=== PATIENT | female | born 1970 | race Caucasian/White ===

== ENCOUNTER 2019-04-27 19:01 | Inpatient (IN) ==
[2019-04-27] MEDS ORDERED: DiphenhydrAMINE HCL 50 MG/ML VIAL IV STA (19:34)
[2019-04-27] MEDS ORDERED: SODIUM CHLORIDE 0.9% 1000ML 2,000 ML IV ONE (19:34)
[2019-04-27] MEDS ORDERED: KETOROLAC TROMETHAMINE 15 MG/ML VIAL IV ONE (19:34)
[2019-04-27] MEDS ORDERED: ASPIRIN CHEW 324 MG PO STA (20:00)
[2019-04-27] MEDS ORDERED: ASPIRIN CHEW 324 MG ONE (20:01)
[2019-04-27 20:08] LABS: Basophils # (auto) 0.05 K/uL (0-0.2); Basophils % (auto) 0.7 %; Eosinophils # (auto) 0.23 K/uL (0-0.5); Eosinophils % (auto) 3.1 %; Hematocrit (blood only) 35.9 % (37-47); Hemoglobin 11.9 g/dL (12.0-16.0); Immature Granulocytes # (auto) 0.02 K/uL (0.00-0.02); Immature Granulocytes % (auto) 0.3 %; Lymphocytes # (auto) 1.62 K/uL (1.2-3.4); Mean Corpuscular Hgb Conc 33.1 g/dL (32-36); Mean Corpuscular Volume 87.8 fL (80-100); Mean Platelet Volume 9.5 fL (7.4-10.4); Monocytes # (auto) 0.66 K/uL (0.11-0.59); Neutrophils # (auto) 4.77 K/uL (1.4-6.5); Neutrophils % (auto) 64.9 %; Platelet Count 171 K/uL (130-400); RDW Coefficient of Variation 13.6 % (11.5-14.5); RDW Standard Deviation 43.6 fL (36.4-46.3); Red Blood Count 4.09 M/uL (4.2-5.4); White Blood Count 7.35 K/uL (4.8-10.8)
--- NOTE | 2019-04-27 20:13 | XRay Report ---
XR chest 1V portable CLINICAL HISTORY: 48 years-old Female presenting with Sepsis. TECHNIQUE: Portable upright AP view of the chest was obtained. COMPARISON: None. FINDINGS: Cardiac silhouette top normal in size. No focal opacity. No large effusion or pneumothorax. Osseous s tructures normal. Upper abdomen normal. IMPRESSION: 1. No acute cardiopulmonary disease. Electronically signed by: Juliano French M.D. 04/27/2019 8:11 PM
[2019-04-27 20:19] LABS: Partial Thromboplastin Time 26.4 Seconds (21.0-31.0); Prothrombin Time 10.4 Seconds (9.0-12.0)
[2019-04-27] MEDS ORDERED: Heparin IV Low Dose WITH Bolus IV STA (20:24)
[2019-04-27] MEDS ORDERED: cefTRIAXone SODIUM 2,000 MG in DEXTROSE 5% 50 ML IV STA (20:24)
[2019-04-27] MEDS ORDERED: Heparin IV Low Dose WITH Bolus STA (20:24)
[2019-04-27 20:27] LABS: Albumin Level 3.4 gm/dl (3.4-5.0); BUN Creatinine Ratio 15.9 (10-20); Calcium 8.4 mg/dl (8.5-10.1); Creatinine Clr Calc Pharmacy 91.3 ml/min; Est GFR (African American) 91.3; Est GFR (Non-African American) 78.8; Potassium 3.7 mmol/L (3.5-5.1)
[2019-04-27 20:30] LABS: Bilirubin,Total 0.4 mg/dl (0.2-1); Globulin 3.5 gm/dl (2.5-4.0); Total Protein 6.9 gm/dl (6.4-8.2)
--- NOTE | 2019-04-27 20:35 | CT Scan Report ---
CT head/brain wo con CLINICAL HISTORY: 48 years-old Female presenting with WYATT, fevers, bodyaches. TECHNIQUE: Multidetector CT imaging of the head was performed without the use of intravenous contrast . IV contrast: None. One or more dose lowering techniques were used consistent with the principles of ALARA (as low as reasonably achievable), including automatic exposure control, mA or kV adjustment t o individual patient size, and/or use of iterative reconstruction. COMPARISON: None. CT DOSE (mGy.cm): The estimated cumulative dose is 537.48 mGy.cm. FINDINGS: [employer] [place] [employer] topogram: Unremarkable. Ventricles and sulci normal in size. No hemorrhage. Brain parenchyma normal in appearance with preser gladys costa-white differentiation. No acute territorial infarct. No mass effect or midline shift. No ext ra-axial fluid collection. Paranasal sinuses and mastoid air cells clear. Calvarium intact. IMPRESSION: 1. No acute intracranial abnormality. Electronically signed by: Juliano French M.D. 04/27/2019 8:33 PM
[2019-04-27] MEDS ORDERED: HEPARIN 25000 UNIT/500 ML D5W IV ONE (20:50)
[2019-04-27] MEDS ORDERED: HEPARIN SOD (PORCINE) 1000 UNIT/ML 10 ML VIAL ONE (20:50)
[2019-04-27] MEDS ORDERED: DEXAMETHASONE **PF** INJ 10 MG/ML VIAL IV ONE (20:57)
[2019-04-27 21:01] LABS: Lyme Ab IgG w/WB Rflx Negative (Negative)
[2019-04-27 21:03] LABS: Lyme Ab IgM w/WB Rflx Positive (Negative)
[2019-04-27 21:26] LABS: Appearance Urine Clear (Clear); Bacteria Urine Automated Negative (Negative); Bilirubin Urine Negative (Negative); Blood Urine Trace (Negative); Cast Urine Automated 0 /lpf (0-5); Color Urine Yellow; Glucose Urine UA Negative (Negative); Ketones Urine Negative (Negative); Leukocyte Esterase Urine Negative (Negative); Nitrite Urine Negative (Negative); Protein Urine Negative (Negative); RBC Urine Automated 0-4 /hpf (0-4); Specific Gravity Urine 1.014 (1.000-1.030); Urobilinogen Urine Negative (Negative); WBC Urine Automated 0 /hpf (0-5); pH Urine 7.5 (4.5-7.5)
[2019-04-27] MEDS ORDERED: Heparin Adult LOW DOSE Wt-Based Dextrose 5% 25,000 units/500 mL IV SCH (21:30)
[2019-04-27] MEDS ORDERED: CALCIUM GLUCONATE 10% 1,000 MG in SODIUM CHLORIDE 0.9% 50 ML IV STA (21:33)
--- NOTE | 2019-04-27 21:55 | History & Physical Report ---
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 In ED patient remained hemodynamically stable. Her WBC was 7.35, H&H 11.9/35.9, platelet 171, CMP unremarkable, Lyme IgM positive, urinalysis consistent with trace micro scopic hematuria. CT scan of head was unremarkable along with chest x-ray. EKG was concerning for anterior lateral and inferior ST wave depression and T wave inversions. Her troponin was WNL. Interventional cardiology was initially called and patient was started on IV heparin prior to the return of her Lyme titer given her concerning EKG findings. This was stopped and she was placed on IV ceftriaxone. Her headache was treated with Toradol, dexamethasone and Benadryl. Symptoms concerning for Lyme Carditis with ECG changes, Lyme IGM + (western blot pending), WYATT, fever, myalgias, arthralgias admit to telemetry consult ID obtain echocardiogram Continue IV Ceftriaxone 2g daily Symptom management Clear liquid diet, ADAT low threshold for LP if sx do not improve lyme western blot pending Patient was seen and examined in collaboration with Dr. Anthony, please see addendum regarding details for assessment and plan. (3) Headache: (4) Asymptomatic microscopic hematuria: Patient had a UA done at outpatient setting which was reported to also have hematuria Would recommend repeat urinalysis Consider outpatient urology evaluation (5) Depression: Continue Zoloft (6) Hypothyroidism: Continue levothyroxine TSH WNL (7) DVT prophylaxis: Per Dr. Anthony Disposition: discharge to home when able Follow up: PCP in [facility] along with approp ID follow up History of Present Illness Chief Complaint: Fever, headache, myalgias, joint ache, shortness of breath x1 week. 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 Approximately 1 week ago patient developed fever that has been present intermittently, T-max 103. She further complains of progressively worse headache located temporal, occipital radiating down bilateral neck, photophobia, myalgias, arthralgias, nausea, shortness of breath at rest, dizziness and feeling off balance, diarrhea. She opted to present to urgent care 2 days ago and was diagnosed with urinary tract infection and placed on antibiotic. She is unaware of what the antibiotic was called. She states "they told me I had blood in my urine and started me on antibiotic." She has been unable to work her stand the past 2 days due to overall feeling poorly. She opts to stay in the dark as it improves her headache symptoms. She has tried [id number] anti-inflammatories and T ylenol without relief. She further notes the development of 3 localized rashes that presented this morning. These rashes are located by her right ear, on her right chest and on the left upper quadrant of her abdomen. Rashes are not itchy and are not painful. She lives in [facility] and states she is outside frequently, especially in her garden. She denies any insect bites or known tick bites; however, she did not recall a pimple-like lesion on her abdomen approximately 2 weeks ago. Her appetite has overall been diminished but she is requesting food at this time. She denies any lightheadedness or presyncope, upper respiratory symptoms, cough, hemoptysis, chest pain, palpitations, vomiting, abdominal pain, dysuria, hematuria, increased frequency urgency with urination, melena, hematochezia. In ED patient remained hemodynamically stable. Her WBC was 7.35, H&H 11.9/35.9, platelet 171, CMP unremarkable, Lyme IgM positive, urinalysis consistent with trace micro scopic hematuria. CT scan of head was unremarkable along with chest x-ray. EKG was concerning for anterior lateral and inferior ST wave depression and T wave inversions. Her troponin was WNL. Interventional cardiology was initially called and patient was started on IV heparin prior to the return of her Lyme titer given her concerning EKG findings. This was stopped and she was placed on IV ceftriaxone. Her headache was treated with Toradol, dexamethasone and Benadryl. Allergies Allergy/AdvReac Type Severity Reaction Status Date / Time onion Allergy Severe vomiting, Verified 04/27/19 23:48 diarrhea Home Medications Home Medications Medication Instructions Recorded Confirmed Type levothyroxine 75 mcg PO DAILY 04/27/19 04/27/19 History sertraline [Zoloft] 100 mg PO HS 04/27/19 04/27/19 History Past Med/Surg History Medical History Depression (Chronic) Hypothyroidism (Chronic) Surgical History History of appendectomy (Chronic) Family History Father Aortic dissection Grandmother (Maternal) Heart disease Mother Alive and well Social History Preferred Language: Cambodian Communication Ability: Effective 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 Physical Exam Physical Exam: Gen: WD/WN, F, NAD, sitting up in bed, pleasant, conversing easily Head: Normocephalic, Atraumatic Eyes: Sclera normal, no conjunctival injection, PERRLA, EOMI, +photophobia ENT: Gross hearing intact, normal pharynx, mucous membranes moist Neck: supple, no adenopathy, No JVD, no bruit, Resp: Clear to auscultation b/l, no wheeze, rales, rhonchi. 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 Extremities: No edema bilaterally Skin: warm, moist, 3 erythematous macular rashes located inferior to R ear, R an terior chest wall with central clearing, and LUQ abdomen, negative turgor, cap refill < 2sec Neuro: Alert and oriented x 3, speech normal, good mood/affect, cran nerve 2-12 intact grossly : deferred Results & Data Vital Signs (Past 12 Hours) Vital Signs Temp Pulse Pulse Resp BP BP Pulse Ox 04/27/19 21:02 75 22 04/27/19 20:45 82 28 H 04/27/19 20:38 74 15 98 04/27/19 20:30 74 77 12 137/92 137/92 98 04/27/19 20:00 79 16 130/86 95 04/27/19 19:07 37.1 C 88 16 118/71 97 Laboratory Results Short CBC 04/27/19 04/27/19 Range/Units 19:56 19:58 WBC 7.35 (4.8-10.8) K/uL Hgb 11.9 L (12.0-16.0) g/dL Hct 35.9 L (37-47) % Plt Count 171 (130-400) K/uL Urine Blood Trace H (Negative) BMP 04/27/19 19:56 Sodium 142 Potassium 3.7 Chloride 107 Carbon Dioxide 28 BUN 14 Creatinine 0.86 Glucose 113 H Calcium 8.4 L Cardiac Enzymes 04/27/19 Range/Units 19:56 Troponin I < 0.015 (0-0.045) ng/ml Liver Function 04/27/19 Range/Units 19:56 Total Bilirubin 0.4 (0.2-1) mg/dl AST 34 (15-37) U/L ALT 68 (12-78) U/L Alkaline Phosphatase 102 (45-117) U/L Albumin 3.4 (3.4-5.0) gm/dl Urine 04/27/19 Range/Units 19:58 Urine Color Yellow Urine Appearance Clear (Clear) Urine pH 7.5 (4.5-7.5) Ur Specific [place] 1.014 (1.000-1.030) Urine Protein Negative (Negative) Urine Glucose (UA) Negative (Negative) Diagnostic Findings Head CT: IMPRESSION: 1. No acute intracranial abnormality. CXR: IMPRESSION: 1. No acute cardiopulmonary disease. Medications Administered Discontinued Medications Aspirin (Aspirin) 324 mg PO NOW STA Stop: 04/27/19 20:01 Last Admin: 04/27/19 20:02 Dose: 324 mg Documented by: [id number] Aspirin (Aspirin) Confirm Administered Dose 324 mg .ROUTE .STK-MED ONE Stop: 04/27/19 20:02 Last Admin: 04/27/19 20:03 Dose: Not Given Documented by: [id number] Diphenhydramine HCl (Benadryl) 50 mg IV NOW Stop: 04/27/19 19:35 Last Admin: 04/27/19 20:36 Dose: 50 mg Documented by: [id number] Heparin Sodium (Porcine) (Heparin Iv Bolus) Confirm Administered Dose 10,000 units .ROUTE .STK-MED ONE Stop: 04/27/19 20:51 Last Admin: 04/27/19 20:52 Dose: 4,000 units Documented by: [id number] Cosigned by: [id number] Heparin Sodium/Dextrose () 1 ea N/A NOW [facility]; Protocol Stop: 04/27/19 20:25 Last Admin: 04/27/19 20:53 Dose: Not Given Documented by: [id number] Heparin Sodium/Dextrose () 1 ea IV NOW ; Protocol Stop: 04/27/19 20:25 Last Admin: 04/27/19 20:53 Dose: Not Given Documented by: [id number] Heparin Sodium/Dextrose (Heparin Sodium/Dextrose) Confirm Administered Dose 25,000 units IV .STK-MED ONE Stop: 04/27/19 20:51 Last Admin: 04/27/19 20:52 Dose: 900 units Documented by: [id number] Cosigned by: [id number] Sodium Chloride (Nss 1000ml) 2,000 mls @ 999 mls/hr IV .Q2H1M ONE Stop: 04/27/19 21:34 Last Admin: 04/27/19 19:59 Dose: 999 mls/hr Documented by: [id number] Ceftriaxone Sodium 2,000 mg/ (Dextrose) 70 mls @ 100 mls/hr IV NOW STA Stop: 04/27/19 21:05 Last Infusion: 04/27/19 21:30 Dose: 0 mls/hr Documented by: [id number] Admin: 04/27/19 20:38 Dose: 100 mls/hr Documented by: [id number] Ketorolac Tromethamine (Toradol) 15 mg IV NOW ONE Stop: 04/27/19 19:35 Last Admin: 04/27/19 20:35 Dose: 15 mg Documented by: [id number] ECG Rate (beats per minute): 84 Findings: + ST depression (Anterolateral, inferior) and + T-wave inversion (Inferior, Anterolateral) Code Status & VTE Plan Code Status Full Code Supervising Physician Co-Signing Physician Notes IM ATTENDING : Patient seen and examined. History obtained from patient, , and records. Preceding documentation by Ms. Svitlana Garner PA-C reviewed. FINAL ASSESSMENT AND PLAN as follows : Lyme meningitis Shortness of breath with abnormal EKG (? Lyme carditis) Patient not septic. Hypothyroidism, euthyroid as of today's TSH Medical telemetry given propensity of Lyme carditis to cause bradyarrhythmias. Ceftriaxone for PAROLE OR PROBATION OFFICER Lyme disease ID consult RE PAROLE OR PROBATION OFFICER Lyme, ? Benefit of LP after initiation of antibiotics (CSF tap unfortunately precluded currently after earlier IV heparin administration at the ER for possible STEMI noted on EKG. ) TTE RE abnormal EKG, rule out carditis Cardiology eval if TTE shows carditis. DVT prophylaxis. Lovenox subcu Full code Patient's requesting updates from providers. Mr. Mansoor Petty, contact #[phone].
[2019-04-27 22:10] LABS: Magnesium 2.2 mg/dl (1.8-2.4)
[2019-04-27] MEDS ORDERED: OPTIRAY 320 125ml IV PRN (22:16)
--- NOTE | 2019-04-27 22:22 | CT Scan Report ---
CT angio chest PE protocol CLINICAL HISTORY: 48 years-old Female presenting with weakness, fever, EKG changes, clinical concern for pulmonary embolus. TECHNIQUE: Multidetector CT angiography of the chest was performed after administration of intravenou s contrast. 3-D volumetric and/or maximum intensity projection (MIP) images were subsequently reconst ructed for review. IV contrast: 101 mL Optiray 320. One or more dose lowering techniques were used co nsistent with the principles of ALARA (as low as reasonably achievable), including automatic exposure control, mA or kV adjustment to individual patient size, and/or use of iterative reconstruction. COMPARISON: None. CT DOSE (mGy.cm): The estimated cumulative dose is 405.45 mGy.cm. 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 Pulmonary vasculature: The study is adequate for assessment of the pulmonary vascular tree. No filling defect within the pul monary arteries to suggest embolus. Main pulmonary artery is not enlarged. No flattening of the inter ventricular septum. No intracardiac filling defect. No reflux of contrast into the hepatic veins. Remaining chest: Soft tissues: Normal thyroid and thoracic inlet. No axillary, supraclavicular, mediastinal, or hilar lymphadenopathy. Normal aorta. Normal heart size. No pericardial or pleural effusion. Subcentimeter h ypodense lesion in the spleen indeterminate though likely lymphangioma or hemangioma. Lungs and airways: No pneumothorax. Central airways patent. Pulmonary arteries are not significantly enlarged relative to adjacent bronchi. No interlobular septal thickening. Minimal dependent changes l ikely atelectasis. Musculoskeletal: Normal osseous structures. IMPRESSION: 1. No evidence of pulmonary embolus. No acute intrathoracic pathology. Electronically signed by: Juliano French M.D. 04/27/2019 10:20 PM
[2019-04-27] MEDS ORDERED: TRAMADOL HCL 50 MG TABLET PO PRN (23:43)
[2019-04-27] MEDS ORDERED: LACTATED RINGER'S 1,000 ML IV ONE (23:43)
[2019-04-27] MEDS ORDERED: IBUPROFEN 200 MG TAB PO PRN (23:43)
[2019-04-27] MEDS ORDERED: PROMETHAZINE HCL 12.5 MG in SODIUM CHLORIDE 0.9% 50 ML IV PRN (23:43)
[2019-04-27] MEDS ORDERED: ACETAMINOPHEN 325 MG TAB PO PRN (23:43)
[2019-04-28] MEDS: SERTRALINE HCL 100 MG TABLET PO SCH ×2 (00:09→21:32)
--- NOTE | 2019-04-28 01:28 | Emergency Department Note ---
Entered by Hugh Webber acting as a scribe for Flaco Guzman DO History of Present Illness General Chief complaint: Fever Stated complaint: EXTREME HEADACHE AND BODY PAIN,3 RASHES Source: patient Limitations: no limitations History of Present Illness Onset (ago): day(s) 6 Location: head Pain Consistency: + constant Quality: + other (worsening) Exacerbated By: + movement Associated symptoms: + denies other symptoms (abdominal pain, burning with urination, ear pain), + fever/chills, + headaches, + rash, + weakness and + other (neck pain); no cough The patient is a 48 white female w/ PMHx depression and hypothyroidism who presents to the ED w/ CC of a constant fever beginning 6 days ago. The patient states she originally had a fever that was higher than 100.2 6 days ago and it was 102 3 days go. She states she had nausea and a headache 3 days ago that has been getting worse. She notes she was having trouble talking 2 days ago. She notes she was having trouble walking yesterday because she was having extreme body pain. She notes she went to [facility] yesterday and they gave her a shot for her headache. She notes she was told she had blood in her urine. She states she woke up today with 3 rashes. She states the rashes are not itchy. She states her neck is sore. She states she has been taking ibuprofen, Tylenol, and NyQuil but they have not been helping. She denies coughing, abdominal pain, burning with urination, and ear pain. She denies any chest pain but does admit to some shortness of breath which has been there since the symptoms started. No previous history of diabetes, hypertension, hyperlipidemia, CAD or sudden in the family of young age. Home Medications Home Medications Medication Instructions Recorded Confirmed Type levothyroxine 75 mcg PO DAILY 04/27/19 04/27/19 History sertraline [Zoloft] 100 mg PO HS 04/27/19 04/27/19 History Allergies Allergy/AdvReac Type Severity Reaction Status Date / Time onion Allergy Severe vomiting, Verified 04/27/19 23:48 diarrhea Past Med/Surg History Medical History Depression (Chronic) Hypothyroidism (Chronic) Surgical History History of appendectomy (Chronic) Family History Father Aortic dissection Grandmother (Maternal) Heart disease Mother Alive and well Social History Preferred Language: Italian Communication Ability: Effective Hat And Cap Drying Room Attendant Required: No Beliefs That Will Affect Care: None marital status: Current Living Situation: Spouse current occupational status: employed 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 and A total of 10 systems reviewed and were otherwise negative Physical Exam Vital Signs Vital Signs - 24 hr 04/27/19 19:07 04/27/19 20:00 04/27/19 20:30 Temperature 37.1 C Temperature Source Oral Sepsis Recent Fever Within 48 Hours Yes Sepsis New/Unexplained Change in Mental Status No Sepsis Action Taken by Nursing No Action Required Pulse Rate 88 74 Pulse Rate [Apical] 79 77 Pulse Rate from SpO2 Sensor 75 Respiratory Rate 16 16 12 Blood Pressure 118/71 137/92 Blood Pressure [Right Arm] 130/86 137/92 Blood Pressure Mean 86 107 Blood Pressure Mean [Right Arm] 100 107 Pulse Oximetry 97 95 98 Oxygen Delivery Method Room Air Room Air Room Air 04/27/19 20:38 04/27/19 20:45 04/27/19 21:02 Temperature Temperature Source Sepsis Recent Fever Within 48 Hours Sepsis New/Unexplained Change in Mental Status Sepsis Action Taken by Nursing Pulse Rate 74 82 75 Pulse Rate [Apical] Pulse Rate from SpO2 Sensor 74 Respiratory Rate 15 28 H 22 Blood Pressure Blood Pressure [Right Arm] Blood Pressure Mean Blood Pressure Mean [Right Arm] Pulse Oximetry 98 Oxygen Delivery Method 04/27/19 21:15 04/27/19 21:16 04/27/19 21:30 Temperature Temperature Source Sepsis Recent Fever Within 48 Hours Sepsis New/Unexplained Change in Mental Status Sepsis Action Taken by Nursing Pulse Rate 77 78 76 Pulse Rate [Apical] Pulse Rate from SpO2 Sensor 77 78 76 Respiratory Rate 17 15 13 Blood Pressure 125/80 123/79 Blood Pressure [Right Arm] Blood Pressure Mean 95 93 Blood Pressure Mean [Right Arm] Pulse Oximetry 98 98 97 Oxygen Delivery Method 04/27/19 21:31 04/27/19 21:40 04/27/19 21:45 Temperature Temperature Source Sepsis Recent Fever Within 48 Hours Sepsis New/Unexplained Change in Mental Status Sepsis Action Taken by Nursing Pulse Rate 78 78 Pulse Rate [Apical] Pulse Rate from SpO2 Sensor 79 78 Respiratory Rate 23 25 H Blood Pressure 129/82 Blood Pressure [Right Arm] Blood Pressure Mean 97 Blood Pressure Mean [Right Arm] Pulse Oximetry 98 98 Oxygen Delivery Method Room Air 04/27/19 21:46 04/27/19 22:00 04/27/19 22:01 Temperature Temperature Source Sepsis Recent Fever Within 48 Hours Sepsis New/Unexplained Change in Mental Status Sepsis Action Taken by Nursing Pulse Rate 77 79 82 Pulse Rate [Apical] Pulse Rate from SpO2 Sensor 77 78 80 Respiratory Rate 19 17 19 Blood Pressure 119/85 Blood Pressure [Right Arm] Blood Pressure Mean 96 Blood Pressure Mean [Right Arm] Pulse Oximetry 96 95 97 Oxygen Delivery Method 04/27/19 22:22 04/27/19 22:30 04/27/19 22:31 Temperature Temperature Source Sepsis Recent Fever Within 48 Hours Sepsis New/Unexplained Change in Mental Status Sepsis Action Taken by Nursing Pulse Rate 75 76 76 Pulse Rate [Apical] Pulse Rate from SpO2 Sensor 75 76 77 Respiratory Rate 19 15 21 Blood Pressure 115/79 Blood Pressure [Right Arm] Blood Pressure Mean 91 Blood Pressure Mean [Right Arm] Pulse Oximetry 97 98 97 Oxygen Delivery Method 04/27/19 22:45 04/27/19 22:46 Temperature Temperature Source Sepsis Recent Fever Within 48 Hours Sepsis New/Unexplained Change in Mental Status Sepsis Action Taken by Nursing Pulse Rate 75 77 Pulse Rate [Apical] Pulse Rate from SpO2 Sensor 75 77 Respiratory Rate 14 18 Blood Pressure 118/78 Blood Pressure [Right Arm] Blood Pressure Mean 91 Blood Pressure Mean [Right Arm] Pulse Oximetry 96 95 Oxygen Delivery Method GENERAL: alert, well nourished, ill-appearing. Laying in bed. [place] on scrubs. Talking in full sentences. EYE EXAM: normal conjunctiva, PERRL and EOM's intact OROPHARYNX: no exudate, no erythema, lips, buccal mucosa, and tongue normal and mucous membranes are moist NECK: supple, no nuchal rigidity, no adenopathy, non-tender LUNGS: Clear to auscultation. Normal chest wall mechanics HEART: no murmurs, S1 normal and S2 normal ABDOMEN: abdomen soft, non-tender, normo-active bowel sounds, no masses, no rebound or guarding. BACK: Back is symmetrical on inspection and there is no deformity, no midline tenderness, no CVA tenderness. SKIN: no rashes and no bruising. 3-4 erythematous lesions 2 inches in length with some intermittent central clearing. Negative nikolsky sign. No petechiae. UPPER EXTREMITIES: upper extremities are grossly normal. LOWER EXTREMITIES: No pitting edema. NEURO EXAM: Normal sensorium, cranial nerves II-XII grossly intact, normal speech, no gross weakness of arms, no gross weakness of legs. Course ED COURSE: Vital signs were reviewed. Vitals are normal. The patients medical record was reviewed The above diagnostic studies were performed and reviewed. ED treatments and interventions as stated above. 1926: The patient was evaluated in room B8. A complete history and physical examination was performed. 2000: I spoke with Dr. Parikh - Cardiology regarding the patient's EKG. 2019: I discussed the patient's case with Dr. Parikh. He believes its ischemic. He recommends starting a heparin drip. He states ECHO is not beneficial at this point. 2044: I reevaluated the patient. Her symptoms are unchanged. 2119: I discussed the patient's case with Dr. Anthony - [facility] Hospitalist. He will evaluate the patient for further management 2144: Dr. Anthony wants the heparin drip to be stopped. 2129: Upon reevaluation, the patient is getting admitted. I discussed my findings with the patient and she understands and agrees with the treatment plan. Based on the patients age, coexisting illnesses, exam and lab findings the decision to treat as an inpatient was made. The patient remained stable while under my care. The patient will be evaluated for further management. Administered Medications Lactated Ringer's (Lr) 1,000 mls @ 80 mls/hr IV .[id number] ONE Stop: 04/28/19 12:12 Last Admin: 04/28/19 00:09 Dose: 80 mls/hr Documented by: [id number] Sertraline HCl (Zoloft) 100 mg PO HS LESLEY Stop: 05/27/19 23:42 Last Admin: 04/28/19 00:09 Dose: 100 mg Documented by: [id number] Discontinued Medications Aspirin (Aspirin) 324 mg PO NOW STA Stop: 04/27/19 20:01 Last Admin: 04/27/19 20:02 Dose: 324 mg Documented by: [id number] Aspirin (Aspirin) Confirm Administered Dose 324 mg .ROUTE .STK-MED ONE Stop: 04/27/19 20:02 Last Admin: 04/27/19 20:03 Dose: Not Given Documented by: [id number] Dexamethasone Sodium Phosphate (Decadron Pf) 10 mg IV NOW ONE Stop: 04/27/19 20:58 Last Admin: 04/27/19 21:59 Dose: 10 mg Documented by: [id number] Diphenhydramine HCl (Benadryl) 50 mg IV NOW STA Stop: 04/27/19 19:35 Last Admin: 04/27/19 20:36 Dose: 50 mg Documented by: [id number] Heparin Sodium (Porcine) (Heparin Iv Bolus) Confirm Administered Dose 10,000 units .ROUTE .STK-MED ONE Stop: 04/27/19 20:51 Last Admin: 04/27/19 20:52 Dose: 4,000 units Documented by: [id number] Cosigned by: [id number] Heparin Sodium/Dextrose () 1 ea N/A NOW STA; Protocol Stop: 04/27/19 20:25 Last Admin: 04/27/19 20:53 Dose: Not Given Documented by: [id number] Heparin Sodium/Dextrose () 1 ea IV NOW STA; Protocol Stop: 04/27/19 20:25 Last Admin: 04/27/19 20:53 Dose: Not Given Documented by: [id number] Heparin Sodium/Dextrose (Heparin Sodium/Dextrose) Confirm Administered Dose 25,000 units IV .STK-MED ONE Stop: 04/27/19 20:51 Last Admin: 04/27/19 20:52 Dose: 900 units Documented by: [id number] Cosigned by: [id number] Sodium Chloride (Nss 1000ml) 2,000 mls @ 999 mls/hr IV .[id number] ONE Stop: 04/27/19 21:34 Last Infusion: 04/27/19 22:02 Dose: 0 mls/hr Documented by: [id number] Admin: 04/27/19 19:59 Dose: 999 mls/hr Documented by: [id number] Ceftriaxone Sodium 2,000 mg/ (Dextrose) 70 mls @ 100 mls/hr IV NOW STA Stop: 04/27/19 21:05 Last Infusion: 04/27/19 21:30 Dose: 0 mls/hr Documented by: [id number] Admin: 04/27/19 20:38 Dose: 100 mls/hr Documented by: [id number] Calcium Gluconate 1,000 mg/ (Sodium Chloride) 60 mls @ 240 mls/hr IV NOW STA Stop: 04/27/19 21:47 Last Infusion: 04/27/19 22:17 Dose: 0 mls/hr Documented by: [id number] Admin: 04/27/19 21:59 Dose: 240 mls/hr Documented by: [id number] Ioversol (Optiray 320 125ml) 101 ml IV ONCE PRN PRN Reason: Interaction Checking Stop: 05/01/19 22:15 Last Admin: 04/27/19 22:16 Dose: 101 ml Documented by: [id number] Ketorolac Tromethamine (Toradol) 15 mg IV NOW ONE Stop: 04/27/19 19:35 Last Admin: 04/27/19 20:35 Dose: 15 mg Documented by: [id number] Medical Decision Making Differential Diagnosis Differential diagnosis: Etiologies such as viral syndrome, otitis, pharyngitis, pneumonia, influenza, meningitis, urinary tract infection, sepsis, bacteremia, as well as others were entertained. Medical Records Attestation: I reviewed the patient's medical records. Home Medications Current Medication List: was personally reviewed by me Laboratory Data Attestation: I reviewed the patient's lab results. Result diagrams: 04/27/19 19:56 04/27/19 19:56 Lab Results 04/27/19 04/27/19 04/27/19 Range/Units 19:56 19:56 19:56 WBC 7.35 (4.8-10.8) K/uL RBC 4.09 L (4.2-5.4) M/uL Hgb 11.9 L (12.0-16.0) g/dL Hct 35.9 L (37-47) % MCV 87.8 (80-100) fL MCH 29.1 (25-34) pg MCHC 33.1 (32-36) g/dL RDW Std Deviation 43.6 (36.4-46.3) fL RDW Coeff of Juan Francisco 13.6 (11.5-14.5) % Plt Count 171 (130-400) K/uL MPV 9.5 (7.4-10.4) fL Immature Gran % (Auto) 0.3 % Neut % (Auto) 64.9 % Lymph % (Auto) 22.0 % Dickens % (Auto) 9.0 % Eos % (Auto) 3.1 % Baso % (Auto) 0.7 % Immature Gran # (Auto) 0.02 (0.00-0.02) K/uL Neut # (Auto) 4.77 (1.4-6.5) K/uL Lymph # (Auto) 1.62 (1.2-3.4) K/uL Dickens # (Auto) 0.66 H (0.11-0.59) K/uL Eos # (Auto) 0.23 (0-0.5) K/uL Baso # (Auto) 0.05 (0-0.2) K/uL PT 10.4 (9.0-12.0) Seconds INR 1.0 (0.9-1.1) APTT 26.4 (21.0-31.0) Seconds PTT Ratio 1.0 Sodium 142 (136-145) mmol/L Potassium 3.7 (3.5-5.1) mmol/L Chloride 107 (98-107) mmol/L Carbon Dioxide 28 (21-32) mmol/L Anion Gap 7.0 (3-11) BUN 14 (7-18) mg/dl Creatinine 0.86 (0.6-1.2) mg/dl Est Cr Clr Drug Dosing 91.3 ml/min Est GFR ( Amer) 91.3 Est GFR (Non-Af Amer) 78.8 BUN/Creatinine Ratio 15.9 (10-20) Glucose 113 H (70-99) mg/dl Lactate (0.4-2.0) mmol/L Calcium 8.4 L (8.5-10.1) mg/dl Magnesium (1.8-2.4) mg/dl Total Bilirubin 0.4 (0.2-1) mg/dl AST 34 (15-37) U/L ALT 68 (12-78) U/L Alkaline Phosphatase 102 (45-117) U/L Total Creatine Kinase (26-192) U/L POC Troponin I (0-0.045) ng/ml Troponin I (0-0.045) ng/ml Total Protein 6.9 (6.4-8.2) gm/dl Albumin 3.4 (3.4-5.0) gm/dl Globulin 3.5 (2.5-4.0) gm/dl Albumin/Globulin Ratio 1.0 (0.9-2) TSH (0.300-4.500) uIu/ml Urine Color Urine Appearance (Clear) Urine pH (4.5-7.5) Ur Specific [place] (1.000-1.030) Urine Protein (Negative) Urine Glucose (UA) (Negative) Urine Ketones (Negative) Urine Blood (Negative) Urine Nitrite (Negative) Urine Bilirubin (Negative) Urine Urobilinogen (Negative) Ur Leukocyte Esterase (Negative) Urine WBC (Auto) (0-5) /hpf Urine RBC (Auto) (0-4) /hpf U Hyaline Cast (Auto) (0-5) /lpf U Epithel Cells (Auto) (0-5) /lpf Urine Bacteria (Auto) (Negative) Lyme Disease IgG Ab (Negative) Lyme Disease IgM Ab (Negative) 04/27/19 04/27/19 04/27/19 Range/Units 19:56 19:56 19:56 WBC (4.8-10.8) K/uL RBC (4.2-5.4) M/uL Hgb (12.0-16.0) g/dL Hct (37-47) % MCV (80-100) fL MCH (25-34) pg MCHC (32-36) g/dL RDW Std Deviation (36.4-46.3) fL RDW Coeff of Juan Francisco (11.5-14.5) % Plt Count (130-400) K/uL MPV (7.4-10.4) fL Immature Gran % (Auto) % Neut % (Auto) % Lymph % (Auto) % Dickens % (Auto) % Eos % (Auto) % Baso % (Auto) % Immature Gran # (Auto) (0.00-0.02) K/uL Neut # (Auto) (1.4-6.5) K/uL Lymph # (Auto) (1.2-3.4) K/uL Dickens # (Auto) (0.11-0.59) K/uL Eos # (Auto) (0-0.5) K/uL Baso # (Auto) (0-0.2) K/uL PT (9.0-12.0) Seconds INR (0.9-1.1) APTT (21.0-31.0) Seconds PTT Ratio Sodium (136-145) mmol/L Potassium (3.5-5.1) mmol/L Chloride (98-107) mmol/L Carbon Dioxide (21-32) mmol/L Anion Gap (3-11) BUN (7-18) mg/dl Creatinine (0.6-1.2) mg/dl Est Cr Clr Drug Dosing ml/min Est GFR ( Amer) Est GFR (Non-Af Amer) BUN/Creatinine Ratio (10-20) Glucose (70-99) mg/dl Lactate 1.2 (0.4-2.0) mmol/L Calcium (8.5-10.1) mg/dl Magnesium (1.8-2.4) mg/dl Total Bilirubin (0.2-1) mg/dl AST (15-37) U/L ALT (12-78) U/L Alkaline Phosphatase (45-117) U/L Total Creatine Kinase (26-192) U/L POC Troponin I (0-0.045) ng/ml Troponin I < 0.015 (0-0.045) ng/ml Total Protein (6.4-8.2) gm/dl Albumin (3.4-5.0) gm/dl Globulin (2.5-4.0) gm/dl Albumin/Globulin Ratio (0.9-2) TSH (0.300-4.500) uIu/ml Urine Color Urine Appearance (Clear) Urine pH (4.5-7.5) Ur Specific [place] (1.000-1.030) Urine Protein (Negative) Urine Glucose (UA) (Negative) Urine Ketones (Negative) Urine Blood (Negative) Urine Nitrite (Negative) Urine Bilirubin (Negative) Urine Urobilinogen (Negative) Ur Leukocyte Esterase (Negative) Urine WBC (Auto) (0-5) /hpf Urine RBC (Auto) (0-4) /hpf U Hyaline Cast (Auto) (0-5) /lpf U Epithel Cells (Auto) (0-5) /lpf Urine Bacteria (Auto) (Negative) Lyme Disease IgG Ab Negative (Negative) Lyme Disease IgM Ab Positive A (Negative) 04/27/19 04/27/19 04/27/19 Range/Units 19:56 19:56 19:58 WBC (4.8-10.8) K/uL RBC (4.2-5.4) M/uL Hgb (12.0-16.0) g/dL Hct (37-47) % MCV (80-100) fL MCH (25-34) pg MCHC (32-36) g/dL RDW Std Deviation (36.4-46.3) fL RDW Coeff of Juan Francisco (11.5-14.5) % Plt Count (130-400) K/uL MPV (7.4-10.4) fL Immature Gran % (Auto) % Neut % (Auto) % Lymph % (Auto) % Dickens % (Auto) % Eos % (Auto) % Baso % (Auto) % Immature Gran # (Auto) (0.00-0.02) K/uL Neut # (Auto) (1.4-6.5) K/uL Lymph # (Auto) (1.2-3.4) K/uL Dickens # (Auto) (0.11-0.59) K/uL Eos # (Auto) (0-0.5) K/uL Baso # (Auto) (0-0.2) K/uL PT (9.0-12.0) Seconds INR (0.9-1.1) APTT (21.0-31.0) Seconds PTT Ratio Sodium (136-145) mmol/L Potassium (3.5-5.1) mmol/L Chloride (98-107) mmol/L Carbon Dioxide (21-32) mmol/L Anion Gap (3-11) BUN (7-18) mg/dl Creatinine (0.6-1.2) mg/dl Est Cr Clr Drug Dosing ml/min Est GFR ( Amer) Est GFR (Non-Af Amer) BUN/Creatinine Ratio (10-20) Glucose (70-99) mg/dl Lactate (0.4-2.0) mmol/L Calcium (8.5-10.1) mg/dl Magnesium 2.2 (1.8-2.4) mg/dl Total Bilirubin (0.2-1) mg/dl AST (15-37) U/L ALT (12-78) U/L Alkaline Phosphatase (45-117) U/L Total Creatine Kinase 46 (26-192) U/L POC Troponin I (0-0.045) ng/ml Troponin I (0-0.045) ng/ml Total Protein (6.4-8.2) gm/dl Albumin (3.4-5.0) gm/dl Globulin (2.5-4.0) gm/dl Albumin/Globulin Ratio (0.9-2) TSH 2.640 (0.300-4.500) uIu/ml Urine Color Yellow Urine Appearance Clear (Clear) Urine pH 7.5 (4.5-7.5) Ur Specific [place] 1.014 (1.000-1.030) Urine Protein Negative (Negative) Urine Glucose (UA) Negative (Negative) Urine Ketones Negative (Negative) Urine Blood Trace H (Negative) Urine Nitrite Negative (Negative) Urine Bilirubin Negative (Negative) Urine Urobilinogen Negative (Negative) Ur Leukocyte Esterase Negative (Negative) Urine WBC (Auto) 0 (0-5) /hpf Urine RBC (Auto) 0-4 (0-4) /hpf U Hyaline Cast (Auto) 0 (0-5) /lpf U Epithel Cells (Auto) 10-20 H (0-5) /lpf Urine Bacteria (Auto) Negative (Negative) Lyme Disease IgG Ab (Negative) Lyme Disease IgM Ab (Negative) 04/27/19 Range/Units 20:04 WBC (4.8-10.8) K/uL RBC (4.2-5.4) M/uL Hgb (12.0-16.0) g/dL Hct (37-47) % MCV (80-100) fL MCH (25-34) pg MCHC (32-36) g/dL RDW Std Deviation (36.4-46.3) fL RDW Coeff of Juan Francisco (11.5-14.5) % Plt Count (130-400) K/uL MPV (7.4-10.4) fL Immature Gran % (Auto) % Neut % (Auto) % Lymph % (Auto) % Dickens % (Auto) % Eos % (Auto) % Baso % (Auto) % Immature Gran # (Auto) (0.00-0.02) K/uL Neut # (Auto) (1.4-6.5) K/uL Lymph # (Auto) (1.2-3.4) K/uL Dickens # (Auto) (0.11-0.59) K/uL Eos # (Auto) (0-0.5) K/uL Baso # (Auto) (0-0.2) K/uL PT (9.0-12.0) Seconds INR (0.9-1.1) APTT (21.0-31.0) Seconds PTT Ratio Sodium (136-145) mmol/L Potassium (3.5-5.1) mmol/L Chloride (98-107) mmol/L Carbon Dioxide (21-32) mmol/L Anion Gap (3-11) BUN (7-18) mg/dl Creatinine (0.6-1.2) mg/dl Est Cr Clr Drug Dosing ml/min Est GFR ( Amer) Est GFR (Non-Af Amer) BUN/Creatinine Ratio (10-20) Glucose (70-99) mg/dl Lactate (0.4-2.0) mmol/L Calcium (8.5-10.1) mg/dl Magnesium (1.8-2.4) mg/dl Total Bilirubin (0.2-1) mg/dl AST (15-37) U/L ALT (12-78) U/L Alkaline Phosphatase (45-117) U/L Total Creatine Kinase (26-192) U/L POC Troponin I < 0.03 (0-0.045) ng/ml Troponin I (0-0.045) ng/ml Total Protein (6.4-8.2) gm/dl Albumin (3.4-5.0) gm/dl Globulin (2.5-4.0) gm/dl Albumin/Globulin Ratio (0.9-2) TSH (0.300-4.500) uIu/ml Urine Color Urine Appearance (Clear) Urine pH (4.5-7.5) Ur Specific [place] (1.000-1.030) Urine Protein (Negative) Urine Glucose (UA) (Negative) Urine Ketones (Negative) Urine Blood (Negative) Urine Nitrite (Negative) Urine Bilirubin (Negative) Urine Urobilinogen (Negative) Ur Leukocyte Esterase (Negative) Urine WBC (Auto) (0-5) /hpf Urine RBC (Auto) (0-4) /hpf U Hyaline Cast (Auto) (0-5) /lpf U Epithel Cells (Auto) (0-5) /lpf Urine Bacteria (Auto) (Negative) Lyme Disease IgG Ab (Negative) Lyme Disease IgM Ab (Negative) Imaging Data Radiologist's Impression: Radiology results as stated below per my review and the radiologist's interpretation: XR chest 1V portable CLINICAL HISTORY: 48 years-old Female presenting with Sepsis. TECHNIQUE: Portable upright AP view of the chest was obtained. COMPARISON: None. FINDINGS: Cardiac silhouette top normal in size. No focal opacity. No large effusion or pneumothorax. Osseous structures normal. Upper abdomen normal. IMPRESSION: 1. No acute cardiopulmonary disease. Electronically signed by: Juliano French M.D. 04/27/2019 8:[address] head/brain wo con CLINICAL HISTORY: 48 years-old Female presenting with WYATT, fevers, bodyaches. TECHNIQUE: Multidetector CT imaging of the head was performed without the use of intravenous contrast. IV contrast: None. One or more dose lowering techniques were used consistent with the principles of ALARA (as low as reasonably achievable), including automatic exposure control, mA or kV adjustment to individual patient size, and/or use of iterative reconstruction. COMPARISON: None. CT DOSE (mGy.cm): The estimated cumulative dose is 537.48 mGy.cm. FINDINGS: Garment Folder topogram: Unremarkable. Ventricles and sulci normal in size. No hemorrhage. Brain parenchyma normal in appearance with preserved costa-white differentiation. No acute territorial infarct. No mass effect or midline shift. No extra-axial fluid collection. Paranasal sinuses and mastoid air cells clear. Calvarium intact. IMPRESSION: 1. No acute intracranial abnormality. Electronically signed by: Juliano French M.D. 04/27/2019 8:33 PM ECG Data Attestation: I personally reviewed and interpreted this ECG as follows: Indication: weakness Rate (beats per minute): 84 Rhythm: sinus rhythm Findings: + Q waves, + ST depression (inferior), + T-wave inversion (inferior, anterior, and lateral) and + ST elevation (high lateral) Additional Comments: 2nd EKG: Sinus rhythm. [address] segment elevation in high lateral lead. ST depression with TWI inferior. TWI in anterior and lateral. ST depression in anterior and lateral. Q waves. Blood Pressure Blood Pressure Findings: Normal blood pressure Blood Pressure Disposition: further management by hospitalist JEREMÍAS Narrative Patient is a 48-year-old female who presents the ER for fever since Monday associated with myalgias arthralgias and headache and neck pain which started on Monday. No known tick bites. Patient also admits to shortness of breath which has been worsening throughout the same time.. She denies any chest pain. She admits that hard to catch her breath but thinks this may be secondary to feeling really weak and run down. IV was established blood work was obtained. Prior to the result of the blood work EKG was reviewed and showed ST segment elevations in lead I and aVL along with diffuse ST depressions and T WI in the inferior leads anterior and lateral. Following this I immediately called her director of rooms. He reviewed the EKG I discussed the case with him. He notes he would not cath her at this time and believes that the EKG is ischemic and recommended starting heparin. Discussed with him in regards to obtaining an echo but he notes it would not be beneficial at this time as long as she did not have pericardial effusion. I did perform a focused limited bedside ultrasound which showed no pericardial effusion. With this he recommended medical treatment for ischemic disease. Patient was given a heparin bolus and drip. Discussed bleeding risk factors prior to starting this medication. Did want to perform a lumbar puncture but as I was bolusing and loading her with heparin I did not feel this was appropriate at this time. With her headache and neck pain covered her prophylactically with Rocephin and steroids for possible meningitis. Patient family were updated at bedside on multiple occasions. Eventually blood work did result and showed a mild anemia at 11.9. No significant leukocytosis. INR was unremarkable. BMP along with LFTs bilirubin and troponin was negative. TSH was unremarkable. UA was unremarkable. IgM Lyme was positive. Patient had artery received [address] PE was performed due to the EKG that showed no acute pathology. Discussed case with the hospitalist who recommended stopping the heparin at this time. Heparin was stopped per the hospitalist and patient was admitted following a heparin drip and bolus secondary to likely ischemia on EKG in combination with IgM positive Lyme with symptoms supporting likely Lyme disease. Patient was monitored closely throughout the stay in the ER. Impression & Plan Lyme disease, Abnormal EKG, Headache, Fever, Dyspnea Critical Care Time Critical Care Time: Yes Total Critical Care Time: 40 I have personally spent approximately 40 minutes of critical care time in the direct management of this patient. This includes bedside care, interpretation of diagnostic studies, and testing, discussion with consultants, patient, and family members, and other required patient management activities. This 40 minutes is in excess of all separately billable procedures. Discharge Plan Visit Data *Final* Discharge Date/Time: 04/27/19 23:10 Chief Complaint: Fever Stated Complaint: EXTREME HEADACHE AND BODY PAIN,3 RASHES ED Provider: Flaco Guzman Discharge Problem: Lyme disease, Abnormal EKG, Headache, Fever, Dyspnea Patient Disposition: Admitted As Inpatient Discharge Instructions Interventions: ED Discharge Assessment Last Done: 04/27/19 23:10 The scribe's documentation has been prepared under my direction and personally reviewed by me in its entirety. I confirm that the note above accurately reflects all work, treatment, procedures, and medical decision making performed by me.
[2019-04-28 06:01] LABS: Basophils # (auto) 0.02 K/uL (0-0.2); Basophils % (auto) 0.3 %; Eosinophils # (auto) 0.01 K/uL (0-0.5); Eosinophils % (auto) 0.1 %; Hematocrit (blood only) 34.4 % (37-47); Hemoglobin 11.2 g/dL (12.0-16.0); Immature Granulocytes # (auto) 0.02 K/uL (0.00-0.02); Immature Granulocytes % (auto) 0.3 %; Lymphocytes # (auto) 0.96 K/uL (1.2-3.4); Lymphocytes % (auto) 14.4 %; Mean Corpuscular Hgb Conc 32.6 g/dL (32-36); Mean Corpuscular Volume 88.7 fL (80-100); Mean Platelet Volume 9.9 fL (7.4-10.4); Monocytes # (auto) 0.15 K/uL (0.11-0.59); Monocytes % (auto) 2.2 %; Neutrophils # (auto) 5.52 K/uL (1.4-6.5); Neutrophils % (auto) 82.7 %; Platelet Count 184 K/uL (130-400); RDW Coefficient of Variation 13.6 % (11.5-14.5); RDW Standard Deviation 43.8 fL (36.4-46.3); Red Blood Count 3.88 M/uL (4.2-5.4); White Blood Count 6.68 K/uL (4.8-10.8)
[2019-04-28] MEDS: LEVOTHYROXINE SODIUM 75 MCG TABLET PO SCH (06:22)
[2019-04-28 06:45] LABS: C Reactive Protein 2.96 mg/dl (0-0.29); Troponin I < 0.015 ng/ml (0-0.045)
--- NOTE | 2019-04-28 08:29 | Infectious Disease Consult ---
Date of Consultation April 28, 2019 Assessment & Plan (1) Lyme disease: Agree with concern for disseminated Lyme, ? ECG TECHNICIAN involvement. She is clinically improved, unsure if LP would be beneficial at this time as she would like to remain on IV abx - I am in agreement with this. Western Blot pending. She [place] in [place] endemic area and has spent significant amount of time gardening although no known tick bites, no ticks removed. Would suggest continued Rocephin, 2 g IV daily x 28 days. She is agreeable to this. we did discuss po ab as well and she would prefer to remain on IV. She states she was planning to return to [place] and then back to [place] within the week but is able to adjust her travel plans to arrange for abx. will likely need to work with case management to assesss insurance coverage and continuity of care once she returns home. History of Present Illness Attending Physician: Coid Beckett MD pt admitted with one week zimmerman, fevers, myalgias and a one day history of 3 erythematous circular rashes, right face, right chest wall and left abd wall - not raised, no central clearing, min itching, non painful. Lives in [facility], in the area for [employer], continued with worsening headache and came to ER yesterday. some photophobia, no visual changes, no facial droop. No cp, sob, cough, no does. no abd pain, no n/v/d. had been seen in urgent care recently for similar symptoms and was told she had a uti despite not having any gu symptoms, was given an unknown abx with no improvement in her symptoms. She had a negative Head ct in ER. wbc 6.6, ESR 15, crp 2.9. UA negative, she did have EKG changes and lyme IgM screen test + - she was placed on Rocephin, tolerating well. No LP done due to anticoagulation. CXR negative, blood cultures pending. On my exam today she states she is feeling significantly better, she has been afebrile since admission, she states her zimmerman is almost completely resolved, min right temporal zimmerman only. no neck stiffness, no visual complaints. eating breakfast on m y exam. no myalgias, no additional rash noted, no arthralgias. no f/c. Allergies Allergy/AdvReac Type Severity Reaction Status Date / Time onion Allergy Severe vomiting, Verified 04/27/19 23:48 diarrhea Home Medications Home Medications Medication Instructions Recorded Confirmed Type levothyroxine 75 mcg PO DAILY 04/27/19 04/27/19 History sertraline [Zoloft] 100 mg PO HS 04/27/19 04/27/19 History Patient History Medical History Depression (Chronic) Hypothyroidism (Chronic) Surgical History History of appendectomy (Chronic) Family History Father Aortic dissection Grandmother (Maternal) Heart disease Mother Alive and well Social History Preferred Language: Montenegrin Communication Ability: Effective Call Center Operations Manager Required: No Beliefs That Will Affect Care: None marital status: Current Living Situation: Spouse current occupational status: employed 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 Feels Safe at Home: Yes Safety Concerns: Feels Safe At This Time Smoking Status: Never smoker Do You Dip or Chew Tobacco: No Hx Alcohol Use: No Hx Substance Use: No Review of Systems Review of Systems: All systems reviewed & are unremarkable except as noted in HPI & below Physical Exam Constitutional: WD/WN, vitals as above Eyes: PERRL, conjunctivae normal, anicteric sclerae ENMT: external ear and nose normal, oropharynx normal Neck: normal visual inspection Respiratory: normal respiratory effort, lungs clear to auscultation Cardiovascular: RRR, no murmur, no edema Gastrointestinal (Abdomen): normal bowel sounds, soft, nontender, no hepatosplenomegaly Musculoskeletal: no cyanosis or clubbing, extremities motor strength 5/5 Skin: + rash (3 circular erythematous rashes noted, not raised, no vesicles, non tender) Neurologic: PERRL, EOMI, accommodation nl, no face palsy, no dysarthria moves all extremities Psychiatric: A+Ox3, euthymic affect Results & Data Vital Signs (Past 12 Hours) Vital Signs Temp Pulse Pulse Resp BP BP Pulse Ox 04/28/19 03:22 36.5 C 72 18 108/69 94 04/27/19 23:44 37.4 C 81 20 115/74 96 04/27/19 23:01 81 23 98 04/27/19 23:00 81 16 118/82 97 04/27/19 22:46 77 18 95 04/27/19 22:45 75 14 118/78 96 04/27/19 22:31 76 21 97 04/27/19 22:30 76 15 115/79 98 04/27/19 22:22 75 19 97 04/27/19 22:01 82 19 97 04/27/19 22:00 79 17 119/85 95 04/27/19 21:46 77 19 96 04/27/19 21:45 78 25 H 129/82 98 04/27/19 21:31 78 23 98 04/27/19 21:30 76 13 123/79 97 04/27/19 21:16 78 15 98 04/27/19 21:15 77 17 125/80 98 04/27/19 21:02 75 22 04/27/19 20:45 82 28 H 04/27/19 20:38 74 15 98 04/27/19 20:30 74 77 12 137/92 137/92 98
[2019-04-28] MEDS ORDERED: ENOXAPARIN INJ 40 MG/0.4 ML SYR SQ SCH (09:00)
[2019-04-28] MEDS: KETOROLAC TROMETHAMINE 15 MG/ML VIAL IV PRN ×2 (09:22→22:14)
--- NOTE | 2019-04-28 17:48 | Hospitalist Progress Note ---
Date of Service April 28, 2019 Assessment & Plan (1) Lyme disease: Possible Lyme meningitis, presented with fever headache neck pain generalized body ache Lyme IgG M+ Patient lives at Lyme endemic area, Does not recall any tick bite, multiple rash/typical to erythema migrans noted in upper torso and arm Lumbar puncture to diagnose Lyme meningitis could not be done as patient received IV heparin bolus in the ER for acute EKG change, ST depression on inferior lateral leads Patient started on empiric treatment with IV Rocephin 2 g every 24 hours for Lyme meningitis Appreciate input from JULITO Cordero Patient will need 28 days of treatment IV access placed for long-term IV antibiotics Patient is visiting [place] for the art festival Lives in [facility] Social service consulted, patient will need arrangement for home IV antibiotic- which will be out of state coverage (2) Headache: Acutely improve after IV antibiotics Secondary to underlying meningitis Fever subsided, no neck pain Continue IV antibiotic as outlined above will need 28 days of treatment Lumbar puncture could not be done secondary to IV anticoagulation provided in ER with concern for possible acute coronary syndrome with acute EKG change (3) Fever: Contrary to Lyme disease/Lyme meningitis Fever broke after initiation of IV antibiotics, remains afebrile for the last 12 hours (4) Acute electrocardiogram changes: Secondary to possible Lyme pericarditis No complaint of chest pain or shortness of breath, No prior history of coronary artery disease patient has very good exercise tolerance very active at baseline 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 Cardiology consult requested CODE STATUS: Full code DVT prophylaxis: Low risk, SCD and teds patient is encouraged to ambulate Disposed position, Expect to be discharged home in next 1 to 2 days, will need to establish home long-term antibiotic therapy Subjective Reports headache is much better, has been afebrile, no photophobia, denies of any chest pain no shortness of breath, no palpitation or dizzy spell Appetite improved Still feels weak, but much better since yesterday Does not have generalized body ache .pain anymore Physical Exam Physical Exam: GENERAL: No sign of distress, HEENT: Sclera nonicteric, pink-purple bilateral equal reactive to light extraocular muscle intact Normal oral mucosa, neck: No JVD, no thyromegaly, trachea midline Lungs: Clear to auscultate, no wheeze or rales Cardiovascular: Regular S1 and S2, no murmur or gallop, no JVD, no lower extremity edema Abdomen: Soft, nontender, bowel sounds active, Circular/oval rashes noted on upper abdomen flank area with central clearing Extremities: Rash as outlined above, no joint swelling no joint erythema Neuro: No focal neurological deficit, no dysarthria, no facial droop Psych: Alert awake oriented x3: Euthymic Skin: No rash LYMPH NODES: No cervical lymphadenopathy Results & Data Vital Signs (Past 12 Hours) Vital Signs Temp Pulse Pulse Resp BP BP Pulse Ox 04/28/19 15:27 36.9 C 71 17 110/60 97 04/28/19 10:04 67 04/28/19 08:02 36.8 C 72 18 100/76 95
[2019-04-28] MEDS: cefTRIAXone SODIUM 2,000 MG in DEXTROSE 5% 50 ML IV SCH (20:22)
[2019-04-29] MEDS: LEVOTHYROXINE SODIUM 75 MCG TABLET PO SCH (06:08)
[2019-04-29 06:44] LABS: Estimated Average Glucose 117 mg/dl; Hemoglobin A1C 5.7 % (4.5-5.6)
[2019-04-29] MEDS: KETOROLAC TROMETHAMINE 15 MG/ML VIAL IV PRN (08:34)
[2019-04-29] MEDS ORDERED: ACETAMINOPHEN 1,000 MG/100 ML VIAL IV STA (08:57)
[2019-04-29] MEDS ORDERED: LORazepam 0.25 MG/0.5 ML VIAL IV STA (09:33)
[2019-04-29] MEDS ORDERED: IBUPROFEN 600 MG TAB PO PRN (09:36)
[2019-04-29] MEDS ORDERED: KETOROLAC TROMETHAMINE 15 MG/ML VIAL IV PRN (09:36)
--- NOTE | 2019-04-29 09:41 | Hospitalist Progress Note ---
Date of Service April 29, 2019 Assessment & Plan (1) Lyme disease: Possible Lyme meningitis, presented with fever headache neck pain generalized body ache Lyme IgG M+ Patient lives at Lyme endemic area, Does not recall any tick bite, multiple rash/typical to erythema migrans noted in upper torso and arm Lumbar puncture to diagnose Lyme meningitis could not be done as patient received IV heparin bolus in the ER for acute EKG change, ST depression on inferior lateral leads Patient started on empiric treatment with IV Rocephin 2 g every 24 hours for Lyme meningitis Appreciate input from JULITO Cordero Patient will need 28 days of treatment IV access placed for long-term IV antibiotics Patient is visiting [place] for the art festival Lives in [facility] Social service consulted, patient will need arrangement for home IV antibiotic-which will be out of state coverage (2) Headache: Develop worsening headache today, without any neurological deficit, afebrile Presented with intractable headache neck pain fever, Symptoms improved after IV antibiotic-worsening of symptoms overnight Possibly secondary to underlying meningitis-with ongoing inflammation, there is also evidence of neck muscle spasm Ordered for Flexeril, given dose of prednisone 30 mg Ordered for IV Tylenol(IV morphine/narcotics avoided, as 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 as needed NSAIDs Added p.o. PPI to prevent severe acid reflux secondary to multiple NSAID dose Continue IV antibiotic as outlined above will need 28 days of treatment Lumbar puncture could not be done secondary to IV anticoagulation IV heparin was given in ER with concern for possible acute coronary syndrome with acute EKG change (3) Fever: Has been afebrile since admission secondary Lyme disease/Lyme meningitis No recurrence of fever after initiation of IV antibiotics, (4) Acute electrocardiogram changes: Secondary to possible Lyme pericarditis No complaint of chest pain or shortness of breath, No prior history of coronary artery disease patient has very good exercise tolerance very active at baseline 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 shows resolution of ST-T wave change, Cardiology consult requested-appreciate input, no evidence of ACS, patient's presentation is not typical of Lyme myocarditis or pericarditis: No chest pain no pleuritic chest discomfort, echo shows no pericardial effusion No further cardiac intervention needed Patient has very low risk factors for coronary atherosclerotic disease: Non- smoker no family history of coronary artery disease nondiabetic, very active: Does rigorous exercise on a daily basis/with no complaint of shortness of breath dyspnea or chest discomfort Patient will benefit with outpatient cardiac stress test after returning back to [facility] in few weeks CODE STATUS: Full code DVT prophylaxis: Low risk, SCD and teds patient is encouraged to ambulate Discharge disposition Expected to be discharged home in next 1 to 2 days, will need arrangements for IV 4 weeks of antibiotic at home Patient is stable to be transferred out of telemetry unit Subjective Complains of severe headache postural type started since midnight yesterday 9 out of 10 Associated with neck pain, Does not have any periorbital tenderness, Patient mentions has symptoms of headache felt similar type that led her to admission Patient remains afebrile, vitals stable Denies of any photophobia No complaint of chest pain, shortness of breath, no dizzy spell or palpitation Physical Exam Constitutional: WD/WN, vitals as above In moderate distress for headache Eyes: PERRL, conjunctivae normal, anicteric sclerae ENMT: external ear and nose normal, oropharynx normal Neck: normal visual inspection Neck is supple, no neck rigidity, area of point tenderness noted on occipital region on skin changes palpation, no rash or skin changes noted Respiratory: normal respiratory effort, lungs clear to auscultation Cardiovascular: RRR, no murmur, no edema Gastrointestinal (Abdomen): normal bowel sounds, soft, nontender, no hepatos plenomegaly Musculoskeletal: no cyanosis or clubbing, extremities motor strength 5/5 Skin: + rash (3 circular erythematous rashes noted, not raised, no vesicles, non tender) Neurologic: PERRL, EOMI, accommodation nl, no face palsy, no dysarthria moves all extremities Complaints of intractable headache started since midnight Psychiatric: A+Ox3, euthymic affect Results & Data Vital Signs (Past 12 Hours) Vital Signs Temp Pulse Pulse Resp BP Pulse Ox Pulse Ox 04/29/19 07:19 77 04/29/19 07:04 36.7 C 58 L 15 112/74 93 04/29/19 03:53 36.7 C 60 17 113/65 95 04/29/19 01:24 66 98 04/28/19 23:35 36.7 C 66 18 145/79 H 97
[2019-04-29] MEDS ORDERED: SODIUM CHLORIDE 0.9% 1000ML 1,000 ML IV SCH (09:45)
[2019-04-29] MEDS ORDERED: predniSONE 10 MG TABLET PO ONE (10:00)
[2019-04-29] MEDS ORDERED: methylPREDNISolone 40 MG in SYRINGE 0 ML IV ONE (10:00)
[2019-04-29] MEDS ORDERED: ACETAMINOPHEN 1,000 MG/100 ML VIAL IV SCH (10:00)
--- NOTE | 2019-04-29 10:28 | Cardiology Consultation ---
Date of Consultation April 29, 2019 Assessment & Plan (1) Lyme disease: (2) Abnormal EKG: Patient with presentation consistent with acute disseminated Lyme disease. Agree with 28 days of IV ceftriaxone. The patient does not have any symptoms suggestive of Lyme carditis, no current chest discomfort, shortness of breath, and is no significant pericardial effusion on echocardiogram, just a trace amount of pericardial fluid anteriorly. She had acute, transient EKG changes that have since resolved with antibiotics. No evidence of AV block or tachycardia. At this time, I do not think she needs any acute treatment other than the antibiotics. Given her lack of clinical symptoms of pericarditis, normal erythrocyte sedimentation rate, and normal troponin, I do not think that anti-inflammatory medications such as ibuprofen or prednisone needs to be started specifically for cardiac indications, however if nonsteroidal anti-inflammatory therapy is helpful from a headache standpoint, I think it would be reasonable. He She is very physically active at baseline. For completeness, I recommend proceeding with an exercise stress echocardiogram perhaps in about an interval of 6 weeks as she will have completed her course of IV antibiotics by then, and this can be performed as an outpatient when she follows up at home in [facility]. Case discussed with Dr Beckett at the bedside. History of Present Illness Attending Physician: Codi Beckett MD History of Present Illness Deonna Torres is a 48 year old female seen in cardiology consultation per the request of Dr Beckett of the [facility] Hospitalist service for the evaluation of an abnormal EKG. The patient describes herself as being physically active at baseline. 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 She has performed several 100 mile mountain bike rides in the last few years and has noted no change in her aerobic capacity or exercise tolerance recently. She typically lives in [facility] about [place] hour south of [place], [place]. 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 2 days prior to when she presented to the emergency department at [facility] on 04/27/2019 she had been seen at a local urgent care center for a waxing and waning fever. She was treated with an unknown antibiotic due to concerns of a possible urinary tract infection. Her symptoms persisted and therefore she presented to the emergency department on 04/27/2019 with 1 week of intermittent fever, headache, myalgias, arthralgias, nauseousness, dizziness, and diarrhea. Her Lyme screen included a positive IgM antibody, bands and Western blot tests are pending at present. Family History: Patient's father suddenly at the age of 65, due to what sounds like an aortic aneurysm Mother at age 73, no heart problems Maternal grandmother with history of coronary heart disease, CABG Patient has 2 brothers neither of whom have a history of heart disease She was seen by infectious disease, and there is concern that she has disseminated Lyme and a 28-day course of intravenous ceftriaxone 2 mg daily as planned. An EKG was performed she presented to the emergency department on 04/27/2019 at 2031 hrs. revealing sinus rhythm at 77 bpm with poor R wave progression in lead V2 suggestive of possible age-indeterminate septal infarct pattern, and gross repolarization abnormality noted in the inferior leads II, Reminyl 3, and aVF with [address] segment depression and associated T wave inversion. The T waves were also inverted in the precordial leads V3 to V6 with subtle lateral ST depression in the lateral precordial leads. ST elevation was actually noted in leads I and aVL. Interventional cardiology was initially asked to review the EKG in the emergency room due to concerns of an acute coronary syndrome, but given her symptoms, infectious work-up was recommended. Troponin was negative on 04/27/2019 at 20:04, as well as on 04/27/2019 at 19: 56, and 04/28/2019 at 5:32 AM. A repeat EKG was performed this morning 04/29/2019 at 6:36 AM revealed sinus bradycardia 59 bpm, with normalization of the previously noted ST changes and T wave inversions as well as ST elevation. Telemetry reveals no profound bradycardia or evidence of AV block. No SVT or atrial fibrillation. An echocardiogram was performed on 04/28/2019 with images reviewed independently by the undersigned revealing normal left ventricular myocardial thickness, normal left ventricular wall motion without regional wall motion of normalities and ejection fraction in the range of 60-65%, mild mitral regurgitation is noted. There is a trace amount of pericardial fluid anteriorly compatible with normal physiology without gross pericardial effusion. Allergies Allergy/AdvReac Type Severity Reaction Status Date / Time onion Allergy Severe vomiting, Verified 04/27/19 23:48 diarrhea tramadol AdvReac Confusion Verified 04/28/19 22:11 Home Medications Home Medications Medication Instructions Recorded Confirmed Type levothyroxine 75 mcg PO DAILY 04/27/19 04/27/19 History sertraline [Zoloft] 100 mg PO HS 04/27/19 04/27/19 History Patient History Medical History Depression (Chronic) Hypothyroidism (Chronic) Surgical History History of appendectomy (Chronic) Family History Father Aortic dissection Grandmother (Maternal) Heart disease Mother Alive and well Social History Preferred Language: [place] Islander Communication Ability: Effective V Belt Inspector Required: No Beliefs That Will Affect Care: None marital status: Current Living Situation: Spouse current occupational status: employed 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 Feels Safe at Home: Yes Safety Concerns: Feels Safe At This Time Smoking Status: Never smoker Do You Dip or Chew Tobacco: No Hx Alcohol Use: No Hx Substance Use: No Review of Systems Review of Systems: All systems reviewed & are unremarkable except as noted in HPI & below Physical Exam Physical Exam: Temp Pulse Resp BP Pulse Ox 36.7 C 77 15 112/74 93 04/29/19 07:04 04/29/19 07:19 04/29/19 07:04 04/29/19 07:04 04/29/19 07:04 Constitutional: + ill appearing Respiratory: normal respiratory effort, lungs clear to auscultation Cardiovascular: RRR, no murmur, no edema Vessels: no JVD Extremities: no edema Gastrointestinal (Abdomen): normal bowel sounds, soft, nontender, no hepatosplenomegaly Neurologic: PERRL, EOMI, accommodation nl, no face palsy, no dysarthria Results & Data Vital Signs (Past 12 Hours) Vital Signs Temp Pulse Pulse Resp BP Pulse Ox Pulse Ox 04/29/19 07:19 77 04/29/19 07:04 36.7 C 58 L 15 112/74 93 04/29/19 03:53 36.7 C 60 17 113/65 95 04/29/19 01:24 66 98 04/28/19 23:35 36.7 C 66 18 145/79 H 97 Laboratory Results Intake and Output 04/28/19 04/29/19 04/29/19 22:59 06:59 14:59 Intake Total 550 / 2625 300 / 2625 100 / 100 Output Total 450 / 2650 600 / 2650 Balance 100 / -25 -300 / -25 100 / 100 Intake: IV 70 / 1070 100 / 100 OFIRMEV 1,000 mg In 100 ml @ 100 / 100 400 mls/hr IV NOW STA Rx#: [id number] Rocephin 2,000 mg In D5w 50 ml 70 / 70 @ 100 mls/hr IV Q24H [facility] Rx#: [id number] Oral 480 / 1555 300 / 1555 Output: Urine 450 / 2650 600 / 2650 Other: Weight 90.3 kg
--- NOTE | 2019-04-29 10:36 | Infectious Disease Progress Nt ---
Date of Service April 29, 2019 Assessment & Plan (1) Lyme disease: Agree with concern for disseminated Lyme, ? ADVISORY INTERN involvement. She is clinically improved, unsure if LP would be beneficial at this time as she would like to remain on IV abx - I am in agreement with this. Western Blot pending. She lives in Lyme endemic area and has spent significant amount of time gardening although no known tick bites, no ticks removed. Would suggest continued Rocephin, 2 g IV daily x 28 days. She is agreeable to this. we did discuss po ab as well and she would prefer to remain on IV. She states she was planning to return to [place] and then back to [place] within the week but is able to adjust her travel plans to arrange for abx. will likely need to work with case management to assesss insurance coverage and continuity of care once she returns home. ok for d/c from ID standpoint when plan for outpatient abx arragned. Subjective Afebrile overnight, remains on rocephin, tolerating well. no am labs. cultures remain negative, lyme screen + western blot pending. Results & Data Vital Signs (Past 12 Hours) Vital Signs Temp Pulse Pulse Resp BP Pulse Ox Pulse Ox 04/29/19 07:19 77 04/29/19 07:04 36.7 C 58 L 15 112/74 93 04/29/19 03:53 36.7 C 60 17 113/65 95 04/29/19 01:24 66 98 04/28/19 23:35 36.7 C 66 18 145/79 H 97 Laboratory Results Microbiology 04/27/19 19:56 Blood Aerobic Blood Culture - Preliminary No growth in Aerobic bottle after 24 hours. 04/27/19 19:56 Blood Anaerobic Blood Culture - Preliminary No growth in Anaerobic bottle after 24 hours. 04/27/19 19:56 Blood Aerobic Blood Culture - Preliminary No growth in Aerobic bottle after 24 hours. 04/27/19 19:56 Blood Anaerobic Blood Culture - Preliminary No growth in Anaerobic bottle after 24 hours.
[2019-04-29] MEDS: CYCLOBENZAPRINE HCL 10 MG TAB PO SCH ×2 (12:53→20:50)
--- NOTE | 2019-04-29 17:50 | Hospitalist Progress Note ---
Date of Service April 29, 2019 Subjective Attending addendum: Patient's headache significantly improved after IV fluids and oral prednisone Update given to patient's present at bedside Peripheral blood smear shows no evidence of anaplasmosis inclusion body Plan remains patient to be discharged home possible tomorrow with 28 days of IV Rocephin She will need close follow-up with her family physician, Outpatient cardiac stress test when clinically stable Codi Beckett MD Results & Data Vital Signs (Past 12 Hours) Vital Signs Temp Pulse Pulse Resp BP Pulse Ox 04/29/19 15:21 36.6 C 72 18 122/79 95 04/29/19 12:44 36.6 C 63 20 108/72 95 04/29/19 11:02 36.8 C 67 17 124/80 97 04/29/19 07:19 77 04/29/19 07:04 36.7 C 58 L 15 112/74 93
[2019-04-29] MEDS: ACETAMINOPHEN 1,000 MG/100 ML VIAL IV SCH (18:10)
[2019-04-29] MEDS: PANTOprazole 40 MG TAB PO SCH (18:10)
[2019-04-29] MEDS: SERTRALINE HCL 100 MG TABLET PO SCH (20:49)
[2019-04-29] MEDS: cefTRIAXone SODIUM 2,000 MG in DEXTROSE 5% 50 ML IV SCH (20:55)
[2019-04-30] MEDS: ACETAMINOPHEN 1,000 MG/100 ML VIAL IV SCH ×2 (03:25→09:59)
[2019-04-30] MEDS: LEVOTHYROXINE SODIUM 75 MCG TABLET PO SCH (06:46)
[2019-04-30] MEDS: PANTOprazole 40 MG TAB PO SCH (09:58)
[2019-04-30] MEDS: CYCLOBENZAPRINE HCL 10 MG TAB PO SCH ×2 (09:58→13:02)
[2019-04-30] MEDS ORDERED: cefTRIAXone SODIUM 2,000 MG in DEXTROSE 5% 50 ML IV SCH (11:15)
--- NOTE | 2019-04-30 13:17 | Hospitalist Progress Note ---
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, presented with fever headache neck pain generalized body ache Lyme IgG M+ Patient lives at Lyme endemic area, Does not recall any tick bite, multiple rash/typical to erythema migrans noted in upper torso and arm Lumbar puncture to diagnose Lyme meningitis could not be done as patient received IV heparin bolus in the ER for acute EKG change, ST depression on inferior lateral leads Patient started on empiric treatment with IV Rocephin 2 g every 24 hours for Lyme meningitis-midsternal 28 days treatment Appreciate input from JULITO Cordero Patient will need 28 days of treatment Headache neck pain fever has significantly resolved after IV antibiotic treatment Patient is visiting [place] to participate in arts festival Lives in [facility] Arrangement made to continue IV antibiotics as patient returns back to [facility] (2) Headache: Headache has resolved today, no fever or neck pain Continue IV antibiotic as outlined above will need 28 days of treatment Lumbar puncture could not be done secondary to IV anticoagulation IV heparin was given in ER with concern for possible acute coronary syndrome with acute EKG change (3) Fever: Resolved Has been afebrile since admission secondary Lyme disease/Lyme meningitis No recurrence of fever after initiation of IV antibiotics, (4) Acute electrocardiogram changes: Secondary to possible Lyme pericarditis No complaint of chest pain or shortness of breath, No prior history of coronary artery disease patient has very good exercise tolerance very active at baseline 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 shows resolution of ST-T wave change, Cardiology consult requested-appreciate input, no evidence of ACS, patient's presentation is not typical of Lyme myocarditis or pericarditis: No chest pain no pleuritic chest discomfort, echo shows no pericardial effusion No further cardiac intervention needed Patient has very low risk factors for coronary atherosclerotic disease: Non- smoker no family history of coronary artery disease nondiabetic, very active: Does rigorous exercise on a daily basis/with no complaint of shortness of breath dyspnea or chest discomfort Patient will benefit with outpatient cardiac stress test after returning back to [facility] in few weeks CODE STATUS: Full code DVT prophylaxis: Low risk, SCD and teds patient is encouraged to ambulate Discharge disposition Stable to be discharged home today PICC line placed, Patient will need 24 more days of IV Rocephin 2 g daily for Lyme meningitis Subjective Patient's headache has completely resolved, no fever or neck pain Stable to be discharged home PICC line will be placed for long-term antibiotic treatment for next 24 days (total 28 days Physical Exam Constitutional: WD/WN, vitals as above Eyes: PERRL, conjunctivae normal, anicteric sclerae ENMT: external ear and nose normal, oropharynx normal Neck: normal visual inspection Respiratory: normal respiratory effort, lungs clear to auscultation Cardiovascular: RRR, no murmur, no edema Gastrointestinal (Abdomen): normal bowel sounds, soft, nontender, no hepatosplenomegaly Musculoskeletal: no cyanosis or clubbing, extremities motor strength 5/5 Skin: + rash (3 circular erythematous rashes noted, not raised, no vesicles, non tender) Neurologic: PERRL, EOMI, accommodation nl, no face palsy, no dysarthria moves all extremities Psychiatric: A+Ox3, euthymic affect Results & Data Vital Signs (Past 12 Hours) Vital Signs Temp Pulse Resp BP Pulse Ox 04/30/19 07:33 36.7 C 62 18 132/86 95 (1) Fever Fever type: unspecified Qualified Code(s): R50.9 - Fever, unspecified (2) Headache Headache type: unspecified Headache chronicity pattern: acute headache Intractability: not intractable Qualified Code(s): R51 - Headache
--- NOTE | 2019-04-30 14:59 | Discharge Summary ---
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 Approximately 1 week ago patient developed fever that has been present intermittently, T-max 103. She further complains of progressively worse headache located temporal, occipital radiating down bilateral neck, photophobia, myalgias, arthralgias, nausea, shortness of breath at rest, dizziness and feeling off balance, diarr hea. She opted to present to urgent care 2 days ago and was diagnosed with urinary tract infection and placed on antibiotic. She is unaware of what the antibiotic was called. She states "they told me I had blood in my urine and started me on antibiotic." She has been unable to work her stand the past 2 days due to overall feeling poorly. She opts to stay in the dark as it improves her headache symptoms. She has tried [id number] anti-inflammatories and Tylenol without relief. She further notes the development of 3 localized rashes that presented this morning. These rashes are located by her right ear, on her right chest and on the left upper quadrant of her abdomen. Rashes are not itchy and are not painful. She lives in [facility] and states she is outside frequently, especially in her garden. She denies any insect bites or known tick bites; however, she did not recall a pimple-like lesion on her abdomen approximately 2 weeks ago. Her appetite has overall been diminished but she is requesting food at this time. She denies any lightheadedness or presyncope, upper respiratory symptoms, cough, hemoptysis, chest pain, palpitations, vomiting, abdominal pain, dysuria, hematuria, increased frequency urgency with urination, melena, hematochezia. In ED patient remained hemodynamically stable. Her WBC was 7.35, H&H 11.9/35.9, platelet 171, CMP unremarkable, Lyme IgM positive, urinalysis consistent with trace micro scopic hematuria. CT scan of head was unremarkable along with chest x-ray. EKG was concerning for anterior lateral and inferior ST wave depression and T wave inversions. Her troponin was WNL. Interventional cardiology was initially called and patient was started on IV heparin prior to the return of her Lyme titer given her concerning EKG findings. This was stopped and she was placed on IV ceftriaxone. Her headache was treated with Toradol, dexamethasone and Benadryl. Principal Diagnosis Lyme meningitis Discharge Exam Constitutional WD/WN, vitals as above Eyes PERRL, conjunctivae normal, anicteric sclerae ENMT external ear and nose normal, oropharynx normal Neck normal visual inspection Respiratory normal respiratory effort, lungs clear to auscultation Cardiovascular RRR, no murmur, no edema Gastrointestinal (Abdomen) normal bowel sounds, soft, nontender, no hepatosplenomegaly Musculoskeletal no cyanosis or clubbing, extremities motor strength 5/5 Skin + rash (3 circular erythematous rashes noted, not raised, no vesicles, non tender) Neurologic PERRL, EOMI, accommodation nl, no face palsy, no dysarthria moves all extremities Psychiatric A+Ox3, euthymic affect Discharge Data Allergies Allergy/AdvReac Type Severity Reaction Status Date / Time onion Allergy Severe vomiting, Verified 04/27/19 23:48 diarrhea tramadol AdvReac Confusion Verified 04/28/19 22:11 Consultations 04/27/19 20:59 ED Decision to Admit Stat 04/27/19 23:43 Consult Infectious Diseases Routine 04/28/19 17:52 Consult Cardiology Routine 04/30/19 13:10 Burn CD for patient Routine Ordered Studies 04/27/19 19:34 CT head/brain wo con Stat 04/27/19 20:50 CT angio chest PE protocol Stat Hospital Course (1) Lyme disease: Possible Lyme meningitis, presented with fever headache neck pain generalized body ache Lyme IgG M+ Patient lives at [place], Does not recall any tick bite, multiple rash/typical to erythema migrans noted in upper torso and arm Lumbar puncture to diagnose Lyme meningitis could not be done as patient received IV heparin bolus in the ER for acute EKG change, ST depression on inferior lateral leads Patient started on empiric treatment with IV Rocephin 2 g every 24 hours for Lyme meningitis-midsternal 28 days treatment Appreciate input from JULITO Cordero Patient will need 28 days of treatment Headache neck pain fever has significantly resolved after IV antibiotic treatment Patient is visiting [employer] to participate in arts festival Lives in [facility] Arrangement made to continue IV antibiotics as patient returns back to [facility] (2) Headache: Headache has resolved today, no fever or neck pain Continue IV antibiotic as outlined above will need 28 days of treatment Lumbar puncture could not be done secondary to IV anticoagulation (IV heparin was given in ER with concern for possible acute coronary syndrome with acute EKG change) Patient had significant improvement after initiation of IV Rocephin treatment (3) Fever: Resolved Has been afebrile since admission secondary Lyme disease/Lyme meningitis No recurrence of fever after initiation of IV antibiotics, (4) Acute electrocardiogram changes: Secondary to possible Lyme pericarditis No complaint of chest pain or shortness of breath, No prior history of coronary artery disease patient has very good exercise tolerance very active at baseline 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 shows resolution of ST-T wave change, Cardiology consult requested-appreciate input, no evidence of ACS, patient's presentation is not typical of Lyme myocarditis or pericarditis: No chest pain no pleuritic chest discomfort, echo shows no pericardial effusion No further cardiac intervention needed Patient has very low risk factors for coronary atherosclerotic disease: Non- smoker no family history of coronary artery disease nondiabetic, very active: Does rigorous exercise on a daily basis/with no complaint of shortness of breath dyspnea or chest discomfort Patient will benefit with outpatient cardiac stress test after returning back to [facility] in few weeks CODE STATUS: Full code DVT prophylaxis: Low risk, SCD and teds patient is encouraged to ambulate Discharge disposition Stable to be discharged home today PICC line placed, Patient will need 24 more days of IV Rocephin 2 g daily for Lyme meningitis Update given to patient's family physician: Dr. Moi Crow at [facility] (ph# [phone]). Discharge instructions faxed Copy of the medical record including CD copy of the echocardiogram given to patient on discharge Patient is scheduled for follow-up with his family physician Dr. Moi Schulte tomorrow 04/01/2019 at 10:10 AM Total Time Total Time Spent Total Time Spent (In Minutes): Approximately 50 minutes Total Time Includes: Examination of the Patient, Discharge Planning, Medication Reconciliation and Communication With Other Providers Discharge Plan Discharge Items Patient Disposition: Home - Self-Care Reason For Visit: ABN EKG, LYME MENINGITIS Discharge Diagnosis: LYME MENINGITIS Discharge Goals: Decrease discomfort and Therapeutic intervention Activity: As commented below Activity Comment: as tolerated Non-emergency contact: Primary Care Provider Call non-emergency contact if: you have any medication questions Diet: Regular Addtl Provider Instructions: Family physician appointment tomorrow 05/01/2019 at 10:[address] Moi Crow at [facility] (# [phone]). Complete IV antibiotic for Lyme meningitis treatment for 24 more days (total 28 days) It is very important not to skip any dose please take [id number] probiotics during long-term antibiotic treatment to prevent antibiotic induced gastroenteritis please update your family physician or Go to the nearest ER if it is after hours, -with recurrence of severe headache, fever, neck pain any pain/Swelling-at the PICC line IV site You will need to have a cardiac stress test/stress echocardiogram in few weeks to assess for the EKG changes noted during your hospital stay at [place], [place] Prescriptions: New ceftriaxone 2 gram recon soln 2 gm IV DAILY 24 Days Qty: 24 RF: 0 Continued sertraline [Zoloft] 100 mg Tablet 100 mg PO HS RF: 0 levothyroxine 75 mcg Tablet 75 mcg PO DAILY RF: 0 Stand-Alone Forms: My [facility] MyPublishercha/Other Patient Handouts: Disease Lyme Prevent, ED Lyme Disease, ED Bite Tick Abx Tx Discharge Orders: Discharge Order (Routine); Ordered 04/30/19 Ordered By: Codi Beckett Admission Data Admit Date/Time: 04/27/19 22:56 Attending Provider: Codi Bcekett Admit Provider: Jose Anthony Primary Care Provider: PCP,NO Other Providers: Jose Anthony ; Blaise Burt ; Bart Ashford Service: Medical
[2019-05-07 01:59] LABS: 18KDIGG Band NONREACTIVE (NONREACTIVE); 23KDIGG Band REACTIVE (NONREACTIVE); 23KDIGM Band REACTIVE (NONREACTIVE); 28KDIGG Band NONREACTIVE (NONREACTIVE); 30KDIGG Band NONREACTIVE (NONREACTIVE); 39KDIGG Band NONREACTIVE (NONREACTIVE); 39KDIGM Band NONREACTIVE (NONREACTIVE); 41KDIGG Band REACTIVE (NONREACTIVE); 41KDIGM Band REACTIVE (NONREACTIVE); 45KDIGG Band NONREACTIVE (NONREACTIVE); 58KDIGG Band REACTIVE (NONREACTIVE); 66KDIGG Band REACTIVE (NONREACTIVE); 93KDIGG Band NONREACTIVE (NONREACTIVE); Lyme Antibodies, WB IgG NEGATIVE (NEGATIVE); Lyme Antibodies, WB IgM POSITIVE (NEGATIVE)
== END 2019-04-30 17:26 | disposition home or self-care (01) | DRG 869 ==
LOC: ED 19:01 → 2E 22:56 → 4W 04-29 12:41
DX: E03.9 Hypothyroidism, unspecified; R31.21 Asymptomatic microscopic hematuria; R94.31 Abnormal electrocardiogram [ECG] [EKG]; Z79.899 Other long term (current) drug therapy; A69.21 Meningitis due to Lyme disease; F32.9 Major depressive disorder, single episode, unspecified; Z82.49 Family history of ischemic heart disease and other diseases of the circulatory system; Z91.018 Allergy to other foods